=== PATIENT | female | born 1995 | race Caucasian/White ===

== ENCOUNTER 2025-09-17 10:05 | Outpatient (CLI) | payer BC, SELFPAY ==
--- OUTSIDE RECORDS SUMMARY | 2025-09-17 11:11 | XMS_ITS ---
Author Organization Unknown Address [address], [place] [id number] Phone Care Team Providers Care Algebraist Name Role Phone PETTYMarquisIVY BUNDY Attending Unavailable Social History Type Status Start Date End Date Code Code Syst em Smoking History Never smoker (Never Smoked) 351938764 SNOMED CT Sex Female Medications Medication Start Date End Date Route Frequency Dose Code Code System Medication Instructions Home Meds Augmentin 875MG-125MG Oral Tablet 01/04/2018 03/13/2023 By mouth Every 12 hours 1 TABLET 397180 RxNorm 1 TABLET By mouth Every 12 hours. Take with food. Assessment You had the following problems:ACUTE BRONCHITIS, UNSPECIFIEDACUTE SINUSITIS, UNSPECIFIED Hospital Discharge Instructions Should you have any questions prior to discharge, please contact a member of your healthcare team. If you have left the hospital and have any questions, please contact your primary care physician. Reason For Referral No Data Found Problems Problem Start Date Resolved Date Status Code Code System ACUTE BRONCHITIS, UNSPECIFIED active 72689784 SNOMED-CT ACUTE SINUSITIS, UNSPECIFIED active 1 7850594 SNOMED-CT Allergies and Adverse Reactions Allergy Substance Reaction Severity Start Date Concern Status Co de Code System No Known Allergies Active 727923104 SNO MED-CT Plan of Treatment No Data Found Encounters Encounter Diagnosis Start Date Code Code Sys tem Routine care 01/25/2023 975351205 SNOME D-CT Personal Care Team Section
--- OUTSIDE RECORDS SUMMARY | 2025-09-17 11:12 | XMS_ITS | Clinical Summary ---
Author Organization [facility] Address [address] [place] [address] Care Team Providers Care Transformation Lead Name Role Phone Darien Abrams MD Primary Care Provider [phone] Source Comments [facility],non-owned Affiliates and Associated Physician Practices is amultiple site organization consisting of ambulatory clinics and hospital sitesin [place], [place], [place] and [place]. This disclosure is being madepursuant to the Care Everywhere program and may not contain all information available regarding this patient. Last updated 18.[facility] [employer] Allergies No known active allergies Medications * Be aware that medications may not be up to date on this document. Alwaysverify current medications with the patient. etonogestrel-et hinyl estradiol (NUVARING) 0.12-0.015 MG/24HR vaginal ring 12/02/2021 Active naphazoline-phe niramine 0.025-0.3 % ophthalmic solution Instill 2 drops into left eye 4 times daily as needed for Itchy Eyes 5 mL 01/18/2022 Active Fexofenadine-Ps eudoephedrine (GABBI-D ALLERGY & CONGESTION) 180-240 MGIndications:S easonal Allergic Rhinitis Take 1 tablet by mouth once daily Reasons: Hayfever 1 tablet 01/18/2022 Active fluticasone propionate (FLONASE) 50 MCG/ACT nasal sprayIndication s:Eye Pruritus,Nasal Congestion [place] 1 (one) spray into each nostril once daily Reasons: Eye Itching, Stuffy Nose 16 g 01/18/2022 Active Active Problems No known active problems Immunizations Immunization Administration Dates Next Due Michael Melgar primary monoval ent 12+ yr 0.3mL Purple cap 09/13/2021,08/21/2021 DTP 05/20/1996, 5,1995,1994 DTaP VACCINE IM (6wk-6yrs) 05/02/2000 HEP B VACCINE, PED/ADOL 1995,1995, HIB VACCINE 05/20/1996, 5,1995,1994 MMR 05/02/2000,02/13/1996 POLIO IPV 05/02/2000 POLIO OPV 1995,1995,1995 TDAP (7yrs+) 01/04/2018 Family History Medical History Relation Name Comments Hypertension Father Thyroid Disease Mother Relation Name Status Comments Father Alive Mother Alive Social History Tobacco Use Types Packs/Day Years Used Date Smoking Tobacco: Never Assessed Smokeless Tobacco: Never Alcohol Use Standard Drinks/Week Comments Yes 0 (1 standard drink = 0.6 oz pur e alcohol) occasional AUDIT-C Answer Date Recorded Q1: How often do you have a drink containing alcohol? Never 07/28/2023 Q2: How many drinks containi ng alcohol do you have on a typical day when you are drinking? Patient does not drink Q3: How often do you have si x or more drinks on one occasion? Never 07/28/2023 Overall Financial Resource Strain (CARDIA) Answe r Date Recorded How hard is it for you to pa y for the very basics like food, housing, medical care, and heating? Not hard at all 07/28/2023 PHQ-2 Answer Date Recorded PHQ2 TOTAL SCORE 0 01/18/2022 [facility] [place] [facility] - Occupational Stress Questionnaire Answer Date Recorded Do you feel stress - tense, restless, nervous, or anxious, or unable to sleep at night because your mind is troubled all the time - these days? Not at all 07/28/2023 Hunger Vital Sign Answer Date Recorded Within the past 12 months, y ou worried that your food would run out before you got the money to buy more. Never true 07/28/20 23 Within the past 12 months, t he food you bought just didn't last and you didn't have money to get more. Never true 07/28/2023 PRAPARE - Transportation Answer Date Re corded In the past 12 months, has l ack of transportation kept you from medical appointments or from getting medications? No 07/08 In the past 12 months, has l ack of transportation kept you from meetings, work, or from getting things needed for daily living? No 07/28/2023 Housing Stability Vital Sign Answer Sukhdeep e Recorded In the last 12 months, was t here a time when you were not able to pay the mortgage or rent on time? No 07/28/2023 In the last 12 months, how many places have you lived? 1 07/28/2023 In the last 12 months, was t here a time when you did not have a steady place to sleep or slept in a group home (including now)? No 07/28/2023 Comments No Sex and Gender Information Value Date Recorded Sex Assigned at Not on file Legal Sex Female 11:40 AM CDT Gender Identity Not on file Sexual Orientation Not on file Last Filed Vital Signs Vital Sign Reading Time Taken Comments Blood Pressure 122/82 01/18/2022 1:35 PM CDT Pulse 73 01/18/2022 1:35 PM CDT Temperature 36.8 C (98.3 F) 01/18/2022 1:35 PM CDT Respiratory Rate 16 01/18/2022 1:35 PM CDT Oxygen Saturation 98% 01/18/2022 1:35 PM CDT Inhaled Oxygen Concentration - - Weight - - Height - - Body Mass Index - - Plan of Treatment Health Maintenance Due Date Last Done Comments HIV SCREENING 2010 HEPATITIS C SCREENING 01/18/2013 PAP SMEAR 01/24/2016 HPV VACCINE (1 - 3-dose SCDM series) 2022 DEPRESSION SCREENING 11/06/2024 01/18/2022 COVID-19 VACCINE ( season) 2025 09/13/2021, 08/21/2021 INFLUENZA VACCINE (#1) 2025 DTAP/TDAP/TD VACCINES (7 - Td or Tdap) 01/05/2028 01/04/2018, 05/02/2000, 05/20/1996, Additional history exists ZOSTER VACCINE (1 of 2) 2045 HEPATITIS B VACCINE Completed 1995, 1995, 1995 HIB VACCINE Completed 05/20/1996, 08/06, 1995, Additional history exists MENINGOCOCCAL (Group B) VACCINE SHARED DECISION-MAKING Aged Out No longer eligible based on patient's age to complete this topic MENINGOCOCCAL GROUPS A/C/Y/W VACCINE Aged Out No longer eligible based on patient's age to complete this topic PNEUMOCOCCAL VACCINE Aged Out No long er eligible based on patient's age to complete this topic Insurance [facility] Care Teams Transformation Lead Relationship Specialty Start Date End Date Darien Abrams MD [address] [place] [address] PCP - General Internal Medicine 01/18/22
--- OUTSIDE RECORDS SUMMARY | 2025-09-17 11:12 | XMS_ITS | Data Portability ---
Author Organization [employer] , [facility] Address [address] [place] [address] Assessment No assessment recorded. Plan of Treatment Reminders Order Date Submit Date Provider Last Modified By Organization Details Last Modified Time Details Appointments None recorded. Lab streptococc us group B, culture, unspecified specimen 2024 025 [facility], [address] [place], [address], 09:04:24 Referral None recorded. Procedures None recorded. Surgeries None recorded. Imaging None recorded. Medication Orders None recorded. Patient TargetsNo targets recorded. Patient Instructions Encounter Date Encounter Id Patient Instructions Last Modified By Organization Details Last Modified Time 04/09/2025 [id number] depression after childbirth: care instructions swallerdavis Not available 04/09/2025 14:48:41 Care at Home With Your Baby: Care Instructions swallerdavis Not available 04/09/2025 14:48:40 control after counseling swallerdavis Not available 04/09/2025 14:48:41 05/07/2025 [id number] depression after childbirth: care instructions swallerdavis Not available 05/07/2025 12:11:28 Care at Home With Your Baby: Care Instructions swallerdavis Not available 05/07/2025 12:11:28 control after counseling swallerdavis Not available 05/07/2025 12:11:28 Reason for Referral None Reported. Results Created Date Observation Date Name Description Value Unit Range Abnormal Flag Note LastModifiedBy Organization Detail LastModifiedTime 03/19/20 25 03/21/2025 STREP TOCOC CUS, GROUP B CULTU RE streptococcu s, group B culture SEE NOTE abnormal STREP TOCOC CUS, GROUP B CULTU RE Micro Numbe r: [id number] Test Statu s: Final Speci men Sourc e: Recto vag Speci men Quali ty: Adequ ate Resul t: Group B Strep tococ cus isola tasha Beta- hemol ytic strep tococ ci are predi ctabl y susce ptibl e to Penic illin and other beta- lacta ms. Susce ptibi lity testi ng not routi toan perfo rmed. Pleas e conta ct the labor atory withi n 3 days if susce ptibi lity testi ng is iesha ed. Note per CDC guide lines optim al recov anand is achie nesha by swabb ing both the lower vagin a and rectu m (thro ugh the anal sphin cter) . Not Available [facility] [address] [place], [address], 03/21/2025 09:04:24 03/30/2003/31/2025 DRUGS OF ABUSE PANEL , URINE amphetamines , urine NEGATI VE neg Not Available [facility] (Lab) [place], [address], 03/31/2025 02:41:19 03/30/2003/31/2025 DRUGS OF ABUSE PANEL , URINE barbituates, urine NEGATI VE neg Not Available [facility] (Lab) [place], [address], 03/31/2025 02:41:19 03/30/2003/31/2025 DRUGS OF ABUSE PANEL , URINE benzodiazapi monroe, urine NEGATI VE neg Not Available [facility] (Lab) [place], [address], 03/31/2025 02:41:19 03/30/2003/31/2025 DRUGS OF ABUSE PANEL , URINE cannabinoids /THC, urine NEGATI VE neg Not Available [facility] (Lab) [place], [address], 03/31/2025 02:41:19 03/30/2003/31/2025 DRUGS OF ABUSE PANEL , URINE cocaine, urine NEGATI VE neg Not Available [facility] (Lab) [place], [address], 03/31/2025 02:41:19 03/30/2003/31/2025 DRUGS OF ABUSE PANEL , URINE methadone, urine NEGATI VE neg Not Available [facility] (Lab) [place], [address], 03/31/2025 02:41:19 03/30/2003/31/2025 DRUGS OF ABUSE PANEL , URINE opiates, urine NEGATI VE neg Not Available [facility] (Lab) [place], [address], 03/31/2025 02:41:19 03/30/2003/31/2025 DRUGS OF ABUSE PANEL , URINE phencyclidin es, urine NEGATI VE neg NOTE: RESUL TS OF THIS DRUG SCREE N SHOUL D BE USED FOR MEDIC AL PURPO SES ONLY AND NOT FOR LEGAL OR EMPLO YMENT PURPO SES. POSIT MARISOL RESUL TS ARE NOT CONFI RMED. MEDIC ATION S CONTA INING EPHED RINE MAY CAUSE FALSE POSIT MARISOL AMPHE TAMIN E CALL [phone], LAB, TO REQUE ST CONFI RMATI ON TESTI NG. IF CREAT ININE IS <40 mg/dL . RECOL LECTI ON IS SUGGE STED. AMPHE TAMIN E- 500 NG/ML GIGI TURAT E- 200 NG/ML BENZO DIAZE PINES - 200 NG/ML THC- 50 NG/ML COCAI NE- 150 NG/ML METHA DONE- 300 NG/ML OPIAT E- 300 MG/ML PCP- 25 NG/ML Not Available [facility] (Lab) [address] [place], [address], 03/31/2025 02:41:19 03/30/2003/31/2025 DRUGS OF ABUSE PANEL , URINE creatinine, urine 34.6 mg/dL 28-217 Not Available [facility] (Lab) [address] [place], [address], 03/31/2025 02:41:19 03/31/2003/31/2025 HEMAG JARED WBC 14.72 x10'3 /uL 4.5-11 .0 high Not Available [facility] (Lab) [address] [place], [address], 03/31/2025 07:07:53 03/31/2003/31/2025 HEMAG JARED RBC 3.86 x10'6 /uL 4.20-5 .40 low Not Available [facility] (Lab) [address] [place], [address], 03/31/2025 07:07:53 03/31/2003/31/2025 HEMAG JARED hemoglobin 12.4 g/dL 12.0-1 6.0 Not Available [facility] (Lab) [address] [place], [address], 03/31/2025 07:07:53 03/31/2003/31/2025 HEMAG JARED hematocrit 35.1 % 38.0-4 8.0 low Not Available [facility] (Lab) [address] [place], [address], 03/31/2025 07:07:53 03/31/2003/31/2025 HEMAG JARED MCV 90.9 fL 81.0-9 9.0 Not Available [facility] (Lab) [address] [facility] [place], [address], 03/31/2025 07:07:53 03/31/2003/31/2025 HEMAG JARED MCH 32.1 pg 27.0-3 1.0 high Not Available [facility] (Lab) [address], [place], [address], 03/31/2025 07:07:53 03/31/2003/31/2025 HEMAG JARED MCHC 35.3 g/dL 32.0-3 6.0 Not Available [facility] (Lab) [address], [place], [address], 03/31/2025 07:07:53 03/31/2003/31/2025 HEMAG JARED RDW 12.2 % 11.5-1 4.5 Not Available [facility] (Lab) [address], [place], [address], 03/31/2025 07:07:53 03/31/2003/31/2025 HEMAG JARED platelet count 191 x10'3 /uL 130-40 0 Not Available [facility] (Lab) [place], [address], 03/31/2025 07:07:53 03/31/2003/31/2025 HEMAG JARED MPV 10.1 fL 9.3-12 .2 Not Available [facility] (Lab) [place], [address], 03/31/2025 07:07:53 03/31/2003/31/2025 SCREE N scr patient NEGATI VE Not Available [facility] (Lab) [address], [place], [address], 03/31/2025 13:03:34 03/31/2003/31/2025 SCREE N comment NEGAT MARISOL SCREE N INDIC ATES NO FURTH ER TESTI NG IS NECSARAH [place]. ONE VIAL OF RHOGA M MAY BE GIVEN IF MOTHE R IS RH NEGAT MARISOL AND BABY IS RH POSIT MARISOL. Not Available [facility] (Lab) [address], [place], [address], 03/31/2025 13:03:34 Result Notes None recorded. Problems Name Problem SNOMED Code Status Onset Date Resolution Date Notes Provider Name and Address Organization Details Recorded Time Single vessel of umbilica l cord 89568676 Completed repeat US @24 weeks Veronica Coelho [facility], [facility] IV 3 12:27:36 Blood group A Rh(D) negative 347511003 Completed Rhogam complete d Veronica nunez, [facility] IV 3 12:27:36 Group B Streptoc occus carrier 41089534792 03 Completed for abx in labor Veronica Coelho [facility], [facility] IV 3 12:27:36 Complete breech presenta tion 55150084 Completed MFM counsele d plan for pCS Veronica nunez, [facility] IV 3 12:27:36 Pregnanc y 68326191 Completed 2022 labs at [facility] Veronica nunez, [facility] IV 3 12:27:36 Past pregnanc y history of section 831372048 Completed 2022 Breech and came in to labor and delivery in labor and was noted to becomple te and breech, strong desire for TOLAC close interval pregnanc y= edc w/i 2years of c section = 1-2% chance of dehiscen ce and would recommen d RLTCs based on this and no inductio n Brandon Yates MD [address] [facility], [place], [address], [facility] [employer] [facility] 5 16:33:04 Deliveri es by [id number] Active 2022 [facility] [employer] [facility] 3 12:02:32 Problem Notes None recorded. Procedures Surgical History Date Name Laterality Status Provider Name and Address Organization Details Recorded Time 5 section completed Veronica Coelho [facility] [employer] [facility] 04/09/2025 14:21:26 3 Date of Last Pap Smear completed Anum Reza [facility] [employer] [facility] 08/13/2024 15:24:37 3 C Section completed Veronica Coelho [facility] [employer] [facility] 04/09/2025 14:21:42 Imaging Results None recorded. Procedure Notes None recorded. Medical Equipment None Reported. Allergies Allergen ID Allergen Name Allergen Category Reaction Reaction Severity Criticality Documentation Date Start Date Code Code System Note Provider Name and Address Organization Details Recorded Time 330134 No known allergy (situatio n) Not available Not available Not available Not available 08/09/2023 50087 6003 [facility]ED [facility] [employer] [facility] 3 11:57:02 No known drug allergies Medications Name Sig Start Date Stop Date Status Note LastModified by Organization Details LastModified Time terconazole 0.4 % vaginal cream Insert 1 applicato rful every day by vaginal route for 7 days. 03/29 completed Not Available Not Available Not Available promethazin e-DM 6.25 mg-15 mg/5 mL oral syrup 11/11 completed Not Available Not Available Not Available levothyroxi ne 50 mcg tablet Take 1 tablet every day by oral route. 11/20 completed Not Available Not Available Not Available oseltamivir 75 mg capsule 11/11 completed Not Available Not Available Not Available ibuprofen 600 mg tablet 600 mg every 6 hours by oral route. 08/17 completed Not Available Not Available Not Available albuterol sulfate HFA 90 mcg/actuati on aerosol inhaler 08/13 completed Not Available Not Available Not Available fluticasone propionate 50 mcg/actuati on nasal spray,suspe nsion 08/13 completed Not Available Not Available Not Available oxycodone 5 mg tablet 08/09 completed Not Available Not Available Not Available etonogestre l 0.12 mg-ethinyl estradiol 0.015 mg/24 hr vaginal ring 11/11 completed Not Available Not Available Not Available magnesium 05/07 completed Not Available Not Available Not Available Vitamin C active Not Available Not Kayla ilable Not Available Fish Oil 05/07 completed Not Available Not Available Not Available active Not Available Not Avai lable Not Available ferrous sulfate 324 mg (65 mg iron) tablet,fatemeh yed release Take 324 mg by oral route. 08/13 completed Not Available Not Available Not Available Trinatal Rx 1 60 mg iron-1 mg tablet TAKE ONE TABLET BY MOUTH EVERY DAY 11/20 completed Not Available Not Available Not Available Probiotic active Not Available Not Kayla ilable Not Available 28 mg iron-800 mcg tablet Take 1 tablet by oral route. 05/03 completed Not Available Not Available Not Available oxycodone 5 mg tablet,oral ONLY (not feeding tubes) Take 5 mg every 6 hours by oral route. 08/09 completed Not Available Not Available Not Available Vitals Date Recorded Body weight Body mass index (BMI) Body height Systolic And Diastolic Provider Name and Address Organization Details Last Updated DateTime 03/12/2025 02026.204 128 g 33.6 kg/m2 170.18 cm 122/72 mm[Hg] Veronica [facility] [employer] 03/12/2025 10:06:23 Date Recorded Body height Body weight Systolic And Diastolic Provider Name and Address Organization Details Last Updated DateTime 03/19/2025 170.18 cm 92116.8932 84 g 126/72 mm[Hg] Veronica [facility] [employer] [facility] 03/19/2025 11:39:16 Date Recorded Body height Body mass index (BMI) Body weight Systolic And Diastolic Provider Name and Address Organization Details Last Updated DateTime 03/26/2025 170.18 cm 34.2 kg/m2 68796.93 g 116/64 mm[Hg] Mell Ramirez [facility] [employer] 03/26/2025 14:40:40 Date Recorded Body height Body mass index (BMI) Body weight Systolic And Diastolic Provider Name and Address Organization Details Last Updated DateTime 04/09/2025 170.18 cm 31.6 kg/m2 66725.86 g 122/70 mm[Hg] Veronica Coelho [employer] 04/09/2025 14:20:16 Date Recorded Body height Body mass index (BMI) Body weight Systolic And Diastolic Provider Name and Address Organization Details Last Updated DateTime 05/07/2025 170.18 cm 32.3 kg/m2 57943.47 g 122/78 mm[Hg] Veronica Coelho [place] [employer] 05/07/2025 11:52:10 Social History Question Answer Notes LastModified by Bacula ion Details LastModified Time Tobacco Smoking Status Never Smoker Veronica Coelho [facility] [employer] 11/11/2022 14:53:03 How Many Years Have You Consumed Alcohol? 8 Information not available 12/28/2022 Are You Blind Or Do You Have Difficulty Seeing? No Information not available 05/31/2023 Are You Deaf Or Do You Have Serious Difficulty Hearing? No Information not available 05/31/2023 What Type Of Diet Are You Following? REGULAR [email or web address] Information not available 11/11/2022 How Many Children Do You Have? 2 [email or web address] Information not available 05/07/2025 What Is Your Relationship Status? Information not available 06/29/2022 Are You Sexually Active? Yes Information not available 06/29/2022 What Types Of Sporting Activities Do You Participate In? [employer] [email or web address] Information not available 10/25/2023 Sex: Female Functional Status Question Answer Note LastModified by [employer] ion Details LastModified Time Do you use any illicit or recreational drugs? No [email or web address] Information not available 11/11/2022 Do you or have you ever used any other forms of tobacco or nicotine? No [email or web address] Information not available 11/11/2022 What is your level of alcohol consumption? None [email or web address] Information not available 01/25/2023 Are you currently employed? Yes [email or web address] Information not available 12/28/2022 Do you or have you ever used e-cigarettes or vape? Never used electronic cigarettes [email or web address] Information not available 12/28/2022 What is your exercise level? Moderate Information not available 12/28/2022 Mental Status None recorded. Family History Relationship Description Onset Age of this Age Resolved Age Notes LastModified by Organization Details LastModified Time Father Hypertensive disorder [email or web address] Not available 2021 13:30:09 Medical History Condition Response Other Cancer N High Blood Pressure N Colon Cancer N Cytomegalovirus N Hyperthyroidism N Herpes (HSV) N Breast Cancer N Blood Transfusion N MRSA N Lung Cancer N Hypothyroidism N Depression N Incontinence N Panic Attacks N Neurological Disorder N Deep Vein Thrombosis N Anxiety Disorder N Autoimmune disease N Arthritis N Tuberculosis/Positive PPD N Shingles N Polycystic Ovarian Syndrome N Infertility N Cervical Cancer N Chlamydia N Hematuria N Stroke N Varicosities N Crohn's Disease N Seasonal allergies N Alzheimer's/Dementia N COPD/Emphysema N HPV/Genital Warts N Endometriosis N IBS (Irritable Bowel Syndrome) N History of Abnormal Pap N High Cholesterol N Liver Disease N Kidney Infection N Fibromyalgia N Ulcer N Kidney Disease N HIV N Gallbladder disease N Sickle Cell Disease/Trait N Von Willebrand disease N ADD/ADHD N Eating Disorder N Anemia N Diabetes Mellitus (non-insulin dependent ) N Ovarian Problems N Multiple Sclerosis N Gonorrhea N Frequent Urinary Tract infections N Osteopenia N Headaches/migraines N GERD (reflux) N Ovarian Cancer N Diabetes (insulin dependent) N Seizures/Epilepsy N Breast Problems N Fibroids N Heart Attack N Asthma N Lupus N Endometrial Cancer N Rubella N Blood Clotting Disorder N Bipolar Disorder N Diabetes Mellitus (during ) N Ulcerative Colitis N Hepatitis N Heart Disease N Pulmonary Embolism N RPR N Chicken Pox N Osteoporosis N Gynecological History Statement/Question Response Flow Light Date of LMP 05/30/2024 HPV Vaccine Y Duration of Flow (days) 6 Most Recent Mammogram Current Control Method None Age at Menarche 15 Date of Last Colonoscopy Most Recent Bone Density Frequency of Cycle (Q days) 50 Date of Last Pap Smear 10/25/2023 Obstetrics History GPAL:G 2 P 2 0 0 2 Type Value Full Term 2 Living 2 Total 2 Past Encounters Encounter ID Performer Location Encounter Start Date Encounter Closed Date Diagnosis/Indication Diagnosis SNOMED-CT Code Diagnosis ICD10 Code Diagnosis IMO Codes Diagnosis Note [id number] Rhea Damon is, [facility] [address] [facility] [address] 06/29/2022 12:48:10 06/29/2022 14:52:04 Reproductive care management 044691005 Z31.81 [id number] GARCIA Hernandez [address] [address] 11/11/2022 14:25:32 11/16/2022 13:17:16 Fertility education 359801359 Z31.62 reviewed menstrual calendar and timed intercours e,last month had a 50 day cycle. Will continue to track and use Ovulation prediction kits to compare ap with cycle, and have timed intercours e [id number] GARCIA Hernandez [address] [address] 12/28/2022 14:25:57 12/28/2022 14:59:19 81022530 Z33.1 LMP 11/04/23 TERRI 08/11/23Us scheduledt aking PNVNo medical/little rgical concerns [id number] GARCIA Hernandez [address] [address] 01/25/2023 10:48:03 01/25/2023 14:22:47 Routine care 040785242 Z34.91 Gestation period, 11 weeks 06775140 Z3A.11 [id number] GARCIA Hernandez [address] [address] 03/08/2023 12:34:16 03/08/2023 13:55:29 Gestation period, 17 weeks 14116961 Z3A.17 Routine an tenatal care 959851291 Z34.91 screening 2437 56136 Z36.3 Vaginal discharge 166826 006 N89.8 Screening for disorder 287416068 Z11.3 N89.9 [id number] GARCIA Hernandez [address] [address] 03/29/2023 14:54:39 03/29/2023 15:20:12 Single vessel of umbilical cord 48537876 Q27.0 [id number] GARCIA Hernandez [address], [address] [place] [address] 05/03/2023 10:23:20 05/03/2023 11:12:16 Gestation period, 25 weeks 68237346 Z3A.25 Routine an tenatal care 578680163 Z34.91 [id number] Rhea Damon is, GARCIA Saez a [facility], [address] [place] [address] 05/31/2023 11:27:26 05/31/2023 12:23:00 Gestation period, 29 weeks 02341866 Z3A.29 [id number] Rhea Damon is, GARCIA Saez a [facility], [address] [place] [address] 06/14/2023 10:30:33 06/14/2023 11:00:23 Gestation period, 31 weeks 12871834 Z3A.31 Routine an tenatal care 259556734 Z34.91 screening 2437 36901 Z36.2 [id number] Rhea Damon is, GARCIA [facility] [address] [place] [address] 06/29/2023 08:51:47 06/29/2023 16:53:52 [id number] Rhea Damon is, GARCIA [facility] [address] [place] [address] 07/13/2023 13:49:20 07/14/2023 14:59:43 screening 737112027 Z36.85 Gestation period, 35 weeks 33645946 Z3A.35 [id number] Rhea Damon is, GARCIA [facility] [address] [place] [address] 07/20/2023 16:27:48 07/24/2023 13:15:22 Gestation period, 36 weeks 97602446 Z3A.36 [id number] Rhea Damon is, GARCIA [facility] [address] [place] [address] 08/03/2023 09:39:31 08/03/2023 17:16:59 Gestation period, 38 weeks 83841542 Z3A.38 [id number] Rhea Damon is, CNArsh Lout a [facility], [address] [place] [address] 08/09/2023 11:54:58 08/09/2023 12:32:04 state 54702176 Z39.2 EPDS 2 great support, BFWill need PP papIncisio n CDI with dermabondF U in 1 month declines BC [id number] Rhea Damon is, [facility], [facility] [address] [place] [address] 09/13/2023 11:55:40 09/13/2023 13:00:20 state 43287271 Z39.2 EPDS 2Has support from family, works all the timebreast feeding going wellDeclin [place] [id number] Rhea Damon is, GARCIA [facility], [facility] [address] [place] [address] 10/25/2023 11:09:34 10/25/2023 12:10:23 Gynecologic examination 30558506 Z01.419 Screening for malignant neoplasm of cervix 141768321 Z12.4 Surveillan ce of contraception 632724450 Z30.40 Depression screening 171 317896 Z13.31 See Intake Screening - PHQ [id number] [facility] [address] [place] [address] 08/13/2024 14:50:56 08/13/2024 17:12:52 test positive 087982533 Z32.01 Pt presents today for a confirmati on of visit. has not been previously confirmed at another healthcare facility. Pt voiced that she is happy about this . TVUS today showed:IUP with Cardiac Activity. TERRI based on this US. TERRI: 04/04/2025G estational Age: 6w 4dFHT: 89 First trimester teaching provided.- --Foods and activities to avoid---We ight gain recommenda tions based on BMI---Safe meds---Ruben entation to practice-- -Delivery locations- --KALINA visit progressio n---Prenat al vitamins daily---To xoplasmosi s precaution s reviewed-- -[facility] Guide; What to expect on your maternity journey-- -S/S of SAB reviewed and when to seek care RTC for 1st OB, Labs, and Physical. --BMI: 31.1 [id number] Rhea bella, GARCIA [facility] h [address] [place] [address] 09/11/2024 16:39:32 09/16/2024 12:12:43 Gestation period, 10 weeks 91495368 Z3A.10 2867046 Normal 4666905 2 Z34.81 0440327 screening 2437 64340 Z36.89 [id number] [facility] [address] [place] [address] 10/02/2024 09:50:32 10/02/2024 13:03:59 Gestation period, 13 weeks 71364997 Z3A.13 9616723 Normal 6598120 2 Z34.82 6978816 Vitamin D below reference range 290828674 R79.89 04940097 [id number] Rhea bella, GARCIA [facility] [address] [place] [address] 10/29/2024 12:02:33 11/12/2024 11:52:37 Gestation period, 17 weeks 22528578 Z3A.17 9289039 Normal 8958507 2 Z34.82 1246611 Acquired hypothyroidism 397108166 E03.9 75012 [id number] [facility] [address] [place] [address] 11/20/2024 09:22:48 11/20/2024 11:03:35 Gestation period, 20 weeks 16288131 Z3A.20 5944880 screening for malformation 763015106 Z36.3 screening 2437 51698 Z36.86 [id number] Rhea bella CNM [facility] [address] [facility] [place] [place] [address] 12/31/2024 13:46:56 12/31/2024 17:39:07 Gestation period, 26 weeks 67912362 Z3A.26 9926090 screening for malformation 838015170 Z36.3 screening 2437 88760 Z36.86 Normal 3255539 2 Z34.82 8732627 [id number] Rhea Damon is, GARCIA [facility] [address] [place] [address] 01/14/2025 15:24:09 01/14/2025 16:28:33 Gestation period, 28 weeks 47622139 Z3A.28 0814288 screening 2437 97683 Z36.89 Normal 9387553 2 Z34.83 6144069 [id number] Rhea Steven-Ra is, GARCIA Lout a [facility], [address] [place] [address] 01/29/2025 14:53:33 01/29/2025 15:33:40 Multigravida 445846878 Z34.83 21804309 Gestation period, 30 weeks 57765433 Z3A.30 0378573 [id number] Rhea Damon is, GARCIA Lout a [facility], [address] [place] [address] 02/12/2025 13:38:05 02/12/2025 14:22:30 Multigravida 706158605 Z34.83 17335313 Gestation period, 32 weeks 5749917 Z3A.32 7684118 [id number] Rhea Damon is, GARCIA Lout a [facility], [address] [place] [address] 02/26/2025 14:33:42 02/26/2025 16:31:14 Multigravida 583868244 Z34.83 84526822 Gestation period, 34 weeks 75098733 Z3A.34 3153627 [id number] Rhea Steven-Ra bella, GARCIA Lout a [facility], [address] [place] [address] 03/12/2025 09:59:59 03/12/2025 10:30:00 Multigravida 359620459 Z34.83 56956941 Gestation period, 36 weeks 47845135 Z3A.36 4374273 [id number] Rhea bella, GARCIA [facility] [facility], [facility] [address] [place] [address] 03/19/2025 11:20:57 03/19/2025 12:10:24 screening [id number] Z36.85 Multigravida [id number] Z 34.83 [id number] Gestation period, 37 weeks [id number] Z3A.37 [id number] Brandon Yates MD [facility] [address] [place] [address] 03/26/2025 14:31:39 04/01/2025 16:05:10 Gestation period, 38 weeks [id number] Z3A.38 [id number] Doing well.GBS positive, we will manage expectantl y. [id number] Rhea bella, [facility], [facility] [address] [place] [address] 04/09/2025 14:13:52 04/09/2025 14:49:16 state [id number] Z39.2 EPDS 5Has support from family, works all the timebreast feeding going wellDeclin es BCSteri strips removed Depression screening 171 [id number] Z13.31 See Screening Section for EPDS Questionna sylvain Result-5 [id number] Rhea bella, GARCIA [facility], [facility] [address] [place] [address] 05/07/2025 11:44:27 05/07/2025 12:56:04 state [id number] Z39.2 EPDS 0Has support from family, works all the timebreast feeding going wellDeclin es BC Depression screening 171 [id number] Z13.31 See Screening Section for EPDS Questionna yslvain Result-0 Health Concerns Section Related Observation LastModified by Organization Detai ls LastModified Time None Recorded Concern Status LastModified by Organization Details LastModified Time None Recorded Advance Directives Directive None Recorded Payers Insurance Date Sequence Insurance Name Policy Number Policy Medina Covered Member ID Medina Member ID Guarantor Name 08/13/2024 1 [place] 111 Felipa Mata [id number] Felipa Mata 05/07/2025 1 [place] 112 Felipa Mata [id number] Felipa Mata Notes Date Note Type Note Provider Name and Address Organization Details Recorded Time 03/12/2025 text/html [facility] OB Return VisitReported by Patient Felipa Peralta y/o here for routine OB visit, she is 36/5 weeks, denies any vaginal spotting, bleeding, fluid leakage or cramping, movement noted, taking vitamins, Rhea Little CNM [facility] [place], [address], [facility] [employer] IV 03/12/2025 10:21:35 03/19/2025 text/html [facility] OB Return VisitReported by Patient Felipa 30 y/o here for routine OB visit, she is 37/5 weeks, denies any vaginal spotting, bleeding, fluid leakage or cramping, movement noted, taking vitamins, getting GBS today Rhea Little CNM [address] [place] [address], [phone], [facility] [employer] 03/19/2025 12:02:00 03/26/2025 text/html ROS as noted in the HPI The patient verbally consented to documentation via virtual scribe for this encounter. Patient is here today for a routine OB visit. She is currently at 38.5 weeks gestation. vitamins: yes She has felt movement.She denies any complaints of the presence of vaginal bleed, leaking fluid, abdominal cramps, nausea, vomiting, headache or visual disturbances. Brandon Yates MD [address] [place] [address], [phone], [facility] [employer] 03/28/2025 18:28:20 04/09/2025 text/html VisitReported by Patient Felipa 30 y/o here for incision check after having on 03/30/2025, delivered by Dr. Yates male, weight 7#15oz, breast feeding, denies any problems Rhea Little CNM [facility] [address] [place], [address], [facility] [employer] [facility] IV 04/09/2025 14:48:51 05/07/2025 text/html VisitReported by PatientHPIFor onset/timing, patient reportsdate of delivery: (03/30/2025). For quality, patient reportsrepeat c/s. For context, patient reportsfeeding choice: breast,good support from partner/family,resume d sexual activity, andresumed menstrual bleeding no. For associated symptoms, patient reportsno abnormal bleeding,no vaginal discharge,no pelvic pain,laceration well healed,no constipation,no fecal incontinence,no dysuria,no urinary incontinence,no fever,no problems,no mastitis, andnormal mood. For contraception plan, patient reportsdeclines contraception. Felipa 30 y/o here for 6 week post visit Rhae Little, [facility] [address] [facility], [place], [address], [facility] 05/07/2025 12:12:16 OBGyn Episode Ob Episode Information Episode Created Date Number of Fetuses Patient Bloodtype Patient rh Status Prepregnancy Weight lbs Domestic Partner Domestic Partner Phone Father Name Field Marketer Status 09/11/20 24 1 A Negative CLOSED Fetus Data First Name Last Name Admitted to NICU Weight (g) Sex Living Outcome Pediatric Complications Fetus ID Race Codes Race Delivery Type false 3600.38 65 M true Full Term [id number] Repeat Problems Problem Notes St E/ has peds and Breastpum p Problem Name Start Date End Date Resolution Snomed Code Not e Past history of section 08/04/2023 [id number] Breech and came in to labor and delivery in labor and was noted to becomplete and breech, strong desire for TOLACclose interval = edc w/i 2years of c section = 1-2% chance of dehiscence and would recommend RLTCs based on this and no induction Terri Calculation Initial Terri Date Initial Exam Date Initial Exam Provider Initial Ultrasound Date Last Menstrual Period Date Ultra Sound Weeks Gestation 04/04/2025 09/11/2024 08/13/2024 0 Eighteen To Twenty Week Terri Update Ultra Sound Date Fundal Height At Umbil Quickening Date Ultra Sound Latest Weeks Gestation Final Terri Confirmed By Final Terri Confirmed Date Final Terri Date Ultra Sound Latest Days Gestation 0 0 Pre-chema Flowsheet Flowsheet Date 09/11/2024 Whitmore Score Blood Edema Fundus Height Fundus Units Glucose Ketones Leukocytes Nitrite Labor Signs Protein Cervic Dilation Cervic Effacement Cervic Station Type Weight in lbs Pre/Post Dialysis Refused With clothes 0.0 BP Diastolic BP Location Tested BP Systolic BP Type sitting Fetus Heart Rate Present A 157 Fetus Movement Comments OTC med list and IOB phample t reviewed, IOB labs today declines NIPT Flowsheet Date 10/02/2024 Whitmore Score Blood Edema Fundus Height Fundus Units Glucose Ketones Leukocytes Nitrite Labor Signs Protein Cervic Dilation Cervic Effacement Cervic Station none neg Type Weight in lbs Pre/Post Dialysis Refused With clothes 192.596965029696 BP Diastolic BP Location Tested BP Systolic BP Type 60 100 sitting Fetus Heart Rate Present A 145 Fetus Movement A No Comments no ob concerns reviewed IOB labs Flowsheet Date 10/29/2024 Whitmore Score Blood Edema Fundus Height Fundus Units Glucose Ketones Leukocytes Nitrite Labor Signs Protein Cervic Dilation Cervic Effacement Cervic Station Type Weight in lbs Pre/Post Dialysis Refused With clothes 196.169277888672 BP Diastolic BP Location Tested BP Systolic BP Type 70 110 sitting Fetus Heart Rate Present A 150 Fetus Movement A No Comments Discussed Hypothyroid, decli [place] meds wants free T3 and free T4 drawn. No ob concerns Flowsheet Date 11/20/2024 Whitmore Score Blood Edema Fundus Height Fundus Units Glucose Ketones Leukocytes Nitrite Labor Signs Protein Cervic Dilation Cervic Effacement Cervic Station Type Weight in lbs Pre/Post Dialysis Refused With clothes 197.222934579232 BP Diastolic BP Location Tested BP Systolic BP Type 75 120 sitting Fetus Heart Rate Present Fetus Movement A Yes Comments 73%ile, post placenta, Incom plete needs heart views Flowsheet Date 12/31/2024 Whitmore Score Blood Edema Fundus Height Fundus Units Glucose Ketones Leukocytes Nitrite Labor Signs Protein Cervic Dilation Cervic Effacement Cervic Station none neg Type Weight in lbs Pre/Post Dialysis Refused Weight 203.330650848036 BP Diastolic BP Location Tested BP Systolic BP Type 70 112 Fetus Heart Rate Present Fetus Movement A Yes Comments anatomy complete, FU in 2 we eks in [place] for 3T Flowsheet Date 01/14/2025 Whitmore Score Blood Edema Fundus Height Fundus Units Glucose Ketones Leukocytes Nitrite Labor Signs Protein Cervic Dilation Cervic Effacement Cervic Station 28 cm Type Weight in lbs Pre/Post Dialysis Refused With clothes 207.929058098487 BP Diastolic BP Location Tested BP Systolic BP Type 70 100 sitting Fetus Heart Rate Present A 135 Fetus Movement A Yes Comments 1 week of BG all WNL, 3T lab s today, no ob concerns Flowsheet Date 01/29/2025 Whitmore Score Blood Edema Fundus Height Fundus Units Glucose Ketones Leukocytes Nitrite Labor Signs Protein Cervic Dilation Cervic Effacement Cervic Station 29 cm none neg Type Weight in lbs Pre/Post Dialysis Refused With clothes 207.292695501017 BP Diastolic BP Location Tested BP Systolic BP Type 66 L arm 118 sitting Fetus Heart Rate Present A 144 Fetus Movement A Yes Comments 3T labs normal, discussed TO LAC, not to be induced, IV, continuous monitoring Flowsheet Date 02/12/2025 Whitmore Score Blood Edema Fundus Height Fundus Units Glucose Ketones Leukocytes Nitrite Labor Signs Protein Cervic Dilation Cervic Effacement Cervic Station 32 cm none neg Type Weight in lbs Pre/Post Dialysis Refused With clothes 209.899290956060 BP Diastolic BP Location Tested BP Systolic BP Type 76 L arm 122 sitting Fetus Heart Rate Present A 140 Fetus Movement A Yes Comments Doing well, no ob concerns Flowsheet Date 02/26/2025 Whitmore Score Blood Edema Fundus Height Fundus Units Glucose Ketones Leukocytes Nitrite Labor Signs Protein Cervic Dilation Cervic Effacement Cervic Station 34 cm none neg Type Weight in lbs Pre/Post Dialysis Refused With clothes 213.430790574354 BP Diastolic BP Location Tested BP Systolic BP Type 78 L arm 122 sitting Fetus Heart Rate Present A 140 Fetus Movement A Yes Comments Doing well, GBS next visit Flowsheet Date 03/12/2025 Whitmore Score Blood Edema Fundus Height Fundus Units Glucose Ketones Leukocytes Nitrite Labor Signs Protein Cervic Dilation Cervic Effacement Cervic Station 36 cm none neg Type Weight in lbs Pre/Post Dialysis Refused With clothes 214.901533727573 BP Diastolic BP Location Tested BP Systolic BP Type 72 L arm 122 sitting Fetus Heart Rate Present A 120 Fetus Movement A Yes Comments GBS not collected today r/t swabs. Will collect next week. Doing well, no ob concerns Flowsheet Date 03/19/2025 Whitmore Score Blood Edema Fundus Height Fundus Units Glucose Ketones Leukocytes Nitrite Labor Signs Protein Cervic Dilation Cervic Effacement Cervic Station none trace Type Weight in lbs Pre/Post Dialysis Refused With clothes 213.419177047084 BP Diastolic BP Location Tested BP Systolic BP Type 72 L arm 126 sitting Fetus Heart Rate Present Fetus Movement A Yes Comments GBS pending FU in 1 week in [place] with Discussed needs continuous monitoring but can be wireless having IV, also having IV even if fluids aren't hooked up Flowsheet Date 03/26/2025 Whitmore Score Blood Edema Fundus Height Fundus Units Glucose Ketones Leukocytes Nitrite Labor Signs Protein Cervic Dilation Cervic Effacement Cervic Station none 39 cm none neg Type Weight in lbs Pre/Post Dialysis Refused Stated 218.321218445494 BP Diastolic BP Location Tested BP Systolic BP Type 64 116 sitting Fetus Heart Rate Present A 140 Present Fetus Movement A Yes Comments GBS positive. Good mov ements and good amount of fluid. Femur length was 72 mm. I guessed they were going to deliver on 04/07/[birth year] and that is her 's birthday. Flowsheet Date 04/09/2025 Whitmore Score Blood Edema Fundus Height Fundus Units Glucose Ketones Leukocytes Nitrite Labor Signs Protein Cervic Dilation Cervic Effacement Cervic Station Type Weight in lbs Pre/Post Dialysis Refused Stated 201.688760594728 BP Diastolic BP Location Tested BP Systolic BP Type 70 L arm 122 sitting Fetus Heart Rate Present Fetus Movement Comments Flowsheet Date 05/07/2025 Whitmore Score Blood Edema Fundus Height Fundus Units Glucose Ketones Leukocytes Nitrite Labor Signs Protein Cervic Dilation Cervic Effacement Cervic Station Type Weight in lbs Pre/Post Dialysis Refused With clothes 206.690082060961 BP Diastolic BP Location Tested BP Systolic BP Type 78 L arm 122 sitting Fetus Heart Rate Present Fetus Movement Comments Menstrual History Last Menstrual Date Menses Monthly On Bcp Conception Prior Menses Frequency Hcg Plus Date Menarche Onset Age Delivery Information Delivery Date Delivery Type Labor Anesthesia Weeks Gestation Incision Type Labor Labor Length Hrs Delivered By Post Complications Tubal Sterilization Discharge Date Comments Regional-Sp inal 39.2 Low Transvers e false false 04/01/2025 Discharge Information Feeding Method Contraceptive Method Maternal HG B and HCT Levels Breast none Ob Episode Information Episode Created Date Number of Fetuses Patient Bloodtype Patient rh Status Prepregnancy Weight lbs Domestic Partner Domestic Partner Phone Father Name Field Marketer Status 01/17/20 23 1 A Negative CLOSED Fetus Data First Name Last Name Admitted to NICU Weight (g) Sex Living Outcome Pediatric Complications Fetus ID Race Codes Race Delivery Type false 3146.79 45 F Full Term [id number] 1111-3 White Primary Problems Problem Notes Problem Name Start Date End Date Resolution Snomed Code Not e 01/16/2023 [id number] [facility] Complete breech presentation [id number] MFM counseled p romina for pCS Blood group A Rh(D) negative 402362102 Rhogam complete d Single vessel of umbilical cord [id number] repeat US @24 weeks Group B Streptococcus carrier [id number] for abx in lab or Terri Calculation Initial Terri Date Initial Exam Date Initial Exam Provider Initial Ultrasound Date Last Menstrual Period Date Ultra Sound Weeks Gestation 08/11/2023 01/16/2023 12/30/2022 11/04/2022 8 Eighteen To Twenty Week Terri Update Ultra Sound Date Fundal Height At Umbil Quickening Date Ultra Sound Latest Weeks Gestation Final Terri Confirmed By Final Terri Confirmed Date Final Terri Date Ultra Sound Latest Days Gestation 0 [email or web address] 01/25/2023 023 0 Pre- Flowsheet Flowsheet Date 01/25/2023 Whitmore Score Blood Edema Fundus Height Fundus Units Glucose Ketones Leukocytes Nitrite Labor Signs Protein Cervic Dilation Cervic Effacement Cervic Station Type Weight in lbs Pre/Post Dialysis Refused With clothes 0.0 BP Diastolic BP Location Tested BP Systolic BP Type R arm sitting Fetus Heart Rate Present Fetus Movement Comments +CA per BSUS orders for labs given Flowsheet Date 03/08/2023 Whitmore Score Blood Edema Fundus Height Fundus Units Glucose Ketones Leukocytes Nitrite Labor Signs Protein Cervic Dilation Cervic Effacement Cervic Station none neg Type Weight in lbs Pre/Post Dialysis Refused With clothes 190.722827068010 BP Diastolic BP Location Tested BP Systolic BP Type 72 R arm 120 sitting Fetus Heart Rate Present A 145 Fetus Movement Comments BV symptoms, sure swab colle cted Flowsheet Date 03/29/2023 Whitmore Score Blood Edema Fundus Height Fundus Units Glucose Ketones Leukocytes Nitrite Labor Signs Protein Cervic Dilation Cervic Effacement Cervic Station Type Weight in lbs Pre/Post Dialysis Refused With clothes 194.210905541410 BP Diastolic BP Location Tested BP Systolic BP Type 76 R arm 122 sitting Fetus Heart Rate Present Fetus Movement Comments anatomy complete, per tech 2 VC pt will schedule repeat US at [place], discussed concern for SGA infant with 2VC. Baby currently 67%ile male, Anatomy US today Flowsheet Date 05/03/2023 Whitmore Score Blood Edema Fundus Height Fundus Units Glucose Ketones Leukocytes Nitrite Labor Signs Protein Cervic Dilation Cervic Effacement Cervic Station 26 none none neg Type Weight in lbs Pre/Post Dialysis Refused With clothes 196.97616384195 BP Diastolic BP Location Tested BP Systolic BP Type 70 R arm 122 sitting Fetus Heart Rate Present A 152 Fetus Movement A Yes Comments MFM referral for SUA and mar ginal cord insertwould prefer to do QID BG testing over GTT Flowsheet Date 05/31/2023 Whitmore Score Blood Edema Fundus Height Fundus Units Glucose Ketones Leukocytes Nitrite Labor Signs Protein Cervic Dilation Cervic Effacement Cervic Station 28 none none neg Type Weight in lbs Pre/Post Dialysis Refused With clothes 199.463476627029 BP Diastolic BP Location Tested BP Systolic BP Type 62 110 sitting Fetus Heart Rate Present A 140 Fetus Movement A Yes Comments Rhogam order given, instruct ed on BG monitoring will do for 1 week instead of 1hr Flowsheet Date 06/14/2023 Whitmore Score Blood Edema Fundus Height Fundus Units Glucose Ketones Leukocytes Nitrite Labor Signs Protein Cervic Dilation Cervic Effacement Cervic Station 32 none neg Type Weight in lbs Pre/Post Dialysis Refused With clothes 201.722200176044 BP Diastolic BP Location Tested BP Systolic BP Type 68 R arm 116 standing Fetus Heart Rate Present A 140 Fetus Movement A Yes Comments BG >95% WNL, can stopwill ge t CBC, HIV and RPR drawn today Flowsheet Date 06/29/2023 Whitmore Score Blood Edema Fundus Height Fundus Units Glucose Ketones Leukocytes Nitrite Labor Signs Protein Cervic Dilation Cervic Effacement Cervic Station none 34 none Type Weight in lbs Pre/Post Dialysis Refused With clothes 208.049069834062 BP Diastolic BP Location Tested BP Systolic BP Type 84 L arm 122 sitting Fetus Heart Rate Present A 137 Fetus Movement A Yes Comments Growths with MFM for SUA Flowsheet Date 06/29/2023 Whitmore Score Blood Edema Fundus Height Fundus Units Glucose Ketones Leukocytes Nitrite Labor Signs Protein Cervic Dilation Cervic Effacement Cervic Station none neg Type Weight in lbs Pre/Post Dialysis Refused BP Diastolic BP Location Tested BP Systolic BP Type Fetus Heart Rate Present Fetus Movement Comments Flowsheet Date 07/13/2023 Whitmore Score Blood Edema Fundus Height Fundus Units Glucose Ketones Leukocytes Nitrite Labor Signs Protein Cervic Dilation Cervic Effacement Cervic Station 35 none neg Type Weight in lbs Pre/Post Dialysis Refused With clothes 210.659451638008 BP Diastolic BP Location Tested BP Systolic BP Type 70 115 sitting Fetus Heart Rate Present A 140 Fetus Movement A Yes Comments GBS pending Flowsheet Date 07/20/2023 Whitmore Score Blood Edema Fundus Height Fundus Units Glucose Ketones Leukocytes Nitrite Labor Signs Protein Cervic Dilation Cervic Effacement Cervic Station 37 none none neg Type Weight in lbs Pre/Post Dialysis Refused With clothes 212.980372536413 BP Diastolic BP Location Tested BP Systolic BP Type 70 112 sitting Fetus Heart Rate Present A 140 Fetus Movement A Yes Comments GBS + hesitant to treat with abx, discussed using essential oils for GBS treatment is not recommendedBreech -discussed we don't do breech deliveries, discussed may want to speak with MFM at [facility] when there for apt this week I'm not sure if there is a physician who will do a breech delivery there Flowsheet Date 08/03/2023 Whitmore Score Blood Edema Fundus Height Fundus Units Glucose Ketones Leukocytes Nitrite Labor Signs Protein Cervic Dilation Cervic Effacement Cervic Station trace 39 none none Type Weight in lbs Pre/Post Dialysis Refused With clothes 217.500053571886 BP Diastolic BP Location Tested BP Systolic BP Type 72 118 sitting Fetus Heart Rate Present A 140 Fetus Movement A Yes Comments 08/02 MFM discussed breech, E CV vs primary CS growth 36% /ant placenta /BREANA 12Discussed primary CS, would like delayed cord clamping and skin to skin SONAL- Case sent for CS 08/11 at [facility] Flowsheet Date 08/09/2023 Whitmore Score Blood Edema Fundus Height Fundus Units Glucose Ketones Leukocytes Nitrite Labor Signs Protein Cervic Dilation Cervic Effacement Cervic Station Type Weight in lbs Pre/Post Dialysis Refused With clothes 197.457796042599 BP Diastolic BP Location Tested BP Systolic BP Type 82 R arm 130 sitting Fetus Heart Rate Present Fetus Movement Comments Flowsheet Date 09/13/2023 Whitmore Score Blood Edema Fundus Height Fundus Units Glucose Ketones Leukocytes Nitrite Labor Signs Protein Cervic Dilation Cervic Effacement Cervic Station Type Weight in lbs Pre/Post Dialysis Refused With clothes 192.648992992171 BP Diastolic BP Location Tested BP Systolic BP Type 76 R arm 126 sitting Fetus Heart Rate Present Fetus Movement Comments Menstrual History Last Menstrual Date Menses Monthly On Bcp Conception Prior Menses Frequency Hcg Plus Date Menarche Onset Age 1211/04/2022 Delivery Information Delivery Date Delivery Type Labor Anesthesia Weeks Gestation Incision Type Labor Labor Length Hrs Delivered By Post Complications Tubal Sterilization Discharge Date Comments 3 General 39 Felipa Saravia MD 08/06/2023 Discharge Information Feeding Method Contraceptive Method Maternal HG B and HCT Levels Breast none
--- OUTSIDE RECORDS SUMMARY | 2025-09-17 11:13 | XMS_ITS ---
Author Organization Unknown Address [address] [place] [phone] Phone Care Team Providers Care Contact Center Consultant Name Role Phone RADHA CHEN Attending Unavailable NO PHYSICIAN Primary Unavailable Social History Type Status Start Date End Date Code Code Syst em Smoking History Never smoker (Never Smoked) 617676029 SNOMED CT Sex Female Medications Medication Start Date End Date Route Frequency Dose Code Code System Medication Instructions Home Meds Augmentin 875MG-125MG Oral Tablet 01/04/2018 03/13/2023 By mouth Every 12 hours 1 TABLET 078468 RxNorm 1 TABLET By mouth Every 12 [...] Code Code System ACUTE BRONCHITIS, UNSPECIFIED active 41327798 SNOMED-CT ACUTE SINUSITIS, UNSPECIFIED active 1 [id number] SNOMED-CT Allergies and Adverse Reactions Allergy Substance Reaction Severity Start Date Concern Status Co de Code System No Known Allergies Active 620982765 SNO MED-CT Plan of Treatment No Data Found Encounters Encounter Diagnosis Start Date Code Code Sys tem Left lower quadrant pain 03/13/2023 SNO MED-CT Personal Care Team Section Progress Notes [facility] 03/14/2023 07:41 Clinical Report - Physicians/Mid Levels [facility] Emergency Department [address] [place] [id number] Patient: EMMA KU Sex: F : 1995 Age: 28y Arrrival: 03/13/2023 21:32 Departure: 03/13/2023 22:43 Disposition: Discharge Arrived- By private vehicle. Historian- patient. HISTORY OF PRESENT ILLNESS Chief Complaint: ABDOMINAL PAIN. It is described as sharp and well localized. No radiation. This started yesterday Pt is 18 weeks presents with left lower abdominal pain. Pain started yesterday and she did not take anything. She saw her Ob last week and had an ultrasound that was grossly unremarkable. Pt is also being treated for yeast infection but vaginal irritation has not improved. She denies vaginal discharge or bleeding. and is still present. No nausea, loss of appetite or vomiting. No additional abdominal pain. Similar symptoms previously. None. Recent medical care: The patient was seen recently in the office. REVIEW OF SYSTEMS No difficulty with urination, fever or headache. All other systems reviewed and are negative. PAST HISTORY See nurses notes. ADDITIONAL NOTES The nursing notes have been reviewed. PHYSICAL EXAM Vital Signs: Have been reviewed as normal. Appearance: Alert. Oriented X3. No acute distress. Eyes: Eyes normal inspection. ENT: Ears normal. Neck: Normal inspection. CVS: Normal heart rate. Heart sounds normal. Respiratory: No respiratory distress. Breath sounds normal. Abdomen: Nontender. Back: Normal inspection. Skin: Skin warm and dry. Normal skin color. Extremities: Extremities exhibit normal ROM. No lower extremity edema. Neuro: Oriented X 3. No motor deficit. LABS, X-RAYS, AND EKG Laboratory Tests: Urinalysis: (JOSE: 03/13/2023 22:21) ( MsgRcvd 03/13/2023 22:21) Final results Test Result Flag Units (Reference) Clinical Report - Physicians/Mid Levels [facility] Emergency Department [address] [place] [address] Patient: EMMA KU Sex: F : 1995 Age: 28y Arrrival: 03/13/2023 21:32 Departure: 03/13/2023 22:43 Disposition: Discharge Color PALE YELLOW Clarity CLEAR Spec Grav 1.005 (NORMAL: 1.001 PH 6.5 A (NORMAL: 5 - 6 Leuk Est + A (NORMAL: NEGAT Nitrates Negative (NORMAL: NEGAT Protein NEGATIVE (NORMAL: NEGAT Glucose NEGATIVE (NORMAL: NEGAT Ketones NEGATIVE (NORMAL: NEGAT Urobilinogen NORMAL (NORMAL: 0-1 m Bilirubin NEGATIVE (NORMAL: NEGAT Blood NEGATIVE (NORMAL: NEGAT Microscopic See Below Wbc (5-10) (NORMAL: 0-3 / Rbc None Seen (NORMAL: 0-3 / Squam Epith (1-5) (NORMAL: 0-1 / Tubal Epith None Seen (NORMAL: None Trans. Epi. NONE SEEN (NORMAL: None Mucus None Seen (NORMAL: None Bacteria PRESENT A (NORMAL: None Crystals NONE SEEN (NORMAL: None Casts NONE SEEN (NORMAL: None Yeast NONE SEEN (NORMAL: None Trichomonas NONE SEEN (NORMAL: None Spermatozoa NONE SEEN (NORMAL: None . PROGRESS AND PROCEDURES Course of Care: 22:30 03/13/23. spoke to M at [facility], Dr Salamanca,she agrees that patient can go home and follow up. 22:34 03/13/23. exam consistent with round ligament pain versus ovarian cyst. Abdomen is soft and nontender. Disposition: Condition: good and stable. CLINICAL IMPRESSION Acute left lower quadrant abdominal pain. Ultrasound was not performed to determine location because the patient had a previously documented intrauterine . Second trimester discomforts of . No vomiting. INSTRUCTIONS No restrictions to activity. Drink plenty of fluids. (Tylenol 500 mg every 4 hours for pain follow-up with your provider in the morning for an outpatient ultrasound to ensure no ovarian cyst return to the emergency department for any worsening of symptoms, vaginal bleeding or clear fluid discharge). Follow-up: Clinical Report - Physicians/Mid Levels [facility] Emergency Department [address] [place] [id number] Patient: EMMA KU Sex: F : 1995 Age: 28y Arrrival: 03/13/2023 21:32 Departure: 03/13/2023 22:43 Disposition: Discharge Follow up with an vocational rehabilitation counselor. (Electronically signed by Jina Thorpe MD 03/14/2023 07:04)
--- OUTSIDE RECORDS SUMMARY | 2025-09-17 11:13 | XMS_ITS | Clinical Summary ---
Author Organization [facility] Address [facility] [place] [address] Care Team Providers Care Spectroscopist Name Role Phone None, Provider MD Primary Care Provider Unavaila ble Allergies No known active allergies Medications vitamin, low iron, ( VITAMIN WITH IRON) 27-0.8 MG tablet Take 1 tablet by mouth daily. Active omega-3 fatty acid (FISH OIL) 500 MG capsule Take 1 capsule (500 mg total) by mouth daily. Active probiotic (FLORAJEN3) Cap capsule Take 1 capsule by mouth 3 (three) times daily with meals. Active oxyCODONE-aceta minophen (PERCOCET) 5-325 MG tabletIndicatio ns:Acute Pain < 7 Day Supply Take 1 tablet by mouth every 6 (six) hours as needed. Indications: Acute Pain < 7 Day Supply 20 tablet 04/01/2025 Active Active Problems Problem Noted Date Diagnosed Date 03/30/2025 Delivery by section using transverse incision of lower segment of uterus 08/06/2023 Breech presentation 08/04/2023 Resolved Problems Problem Noted Date Diagnosed Date Resolved Date 07/27/2023 08/07/2023 Overview (08/04/2023): Added automatically from request for surgery [id number] Social History Tobacco Use Types Packs/Day Years Used Date Smoking Tobacco: Never Smokeless Tobacco: Never Alcohol Use Standard Drinks/Week Comments Never 0 (1 standard drink = 0.6 oz pur e alcohol) B1300 Health Literacy Answer Date Recor ded How often do you need to hav e someone help you when you read instructions, pamphlets, or other written material from your doctor or pharmacy? Rarely 03/31/2025 [facility] Utilities Answer Date Recorded In the past 12 months has e [place], gas, oil, or water company threatened to shut off services in your home? No 03/31/2025 Humiliation, Afraid, Rape, and Kick questionnair e Answer Date Recorded Within the last year, have y ou been afraid of your partner or ex-partner? No 03/31/2025 Within the last year, have y ou been humiliated or emotionally abused in other ways by your partner or ex-partner? No Within the last year, have y ou been kicked, hit, slapped, or otherwise physically hurt by your partner or ex-partner? No 03/31/2025 Within the last year, have y ou been raped or forced to have any kind of sexual activity by your partner or ex-partner? No 03/31/2025 Social Connection and Isolation Panel Answer Date Recorded In a typical week, how many times do you talk on the phone with family, friends, or neighbors? More than three times a week 03/31/2025 How often do you get togethe r with friends or relatives? Once a week 03/31/2025 How often do you attend [facility] or temple services? More than 4 times per year 03/31/2025 Do you belong to any clubs o r organizations such as yazidism groups, unions, fraternal or athletic groups, or school groups? No 03/31/2025 How often do you attend meet ings of the clubs or organizations you belong to? Never 03/31/2025 Are you , , di vorced, , never , or living with a partner? 03/31/2025 AUDIT-C Answer Date Recorded Q1: How often do you have a drink containing alc ohol? Never 03/31/2025 Q2: How many drinks containi ng alcohol do you have on a typical day when you are drinking? 1 or 2 03/31/2025 Q3: How often do you have si x or more drinks on one occasion? Less than monthly 03/31/2025 Overall Financial Resource Strain (CARDIA) Answe r Date Recorded How hard is it for you to pa y for the very basics like food, housing, medical care, and heating? Not hard at all 03/31/2025 PHQ-2 Answer Date Recorded Patient Health Questionnaire-2 Score 0 03/31/2025 [facility] [place] of Occupat ional [facility] - Occupational Stress Questionnaire Answer Date Recorded Do you feel stress - tense, restless, nervous, or anxious, or unable to sleep at night because your mind is troubled all the time - these days? Not at all 03/31/2025 Exercise Vital Sign Answer Date Recorde d On average, how many days pe r week do you engage in moderate to strenuous exercise (like a brisk walk)? 2 days 03/31/2025 On average, how many minutes do you engage in exercise at this level? 30 min 03/31/2025 Hunger Vital Sign Answer Date Recorded Within the past 12 months, y ou worried that your food would run out before you got the money to buy more. Never true 03/31/20 25 Within the past 12 months, t he food you bought just didn't last and you didn't have money to get more. Never true 03/31/2025 PRAPARE - Transportation Answer Date Re corded In the past 12 months, has l ack of transportation kept you from medical appointments or from getting medications? No 03/07 In the past 12 months, has l ack of transportation kept you from meetings, work, or from getting things needed for daily living? No 03/31/2025 Housing Stability Vital Sign Answer Sukhdeep e Recorded In the last 12 months, was t here a time when you were not able to pay the mortgage or rent on time? No 08/04/2023 In the last 12 months, how many places have you lived? 1 08/04/2023 In the last 12 months, was t here a time when you did not have a steady place to sleep or slept in a jail (including now)? No 08/04/2023 Housing Stability Vital Sign Answer Sukhdeep e Recorded In the last 12 months, was t here a time when you were not able to pay the mortgage or rent on time? No 03/31/2025 In the past 12 months, how m any times have you moved where you were living? 1 03/31/2025 At any time in the past [address] [facility], were you homeless or living in a jail (including now)? No 03/31/2025 Depression Answer Date Recor ded Last EPDS Total Score 3 04/01/2025 Last EPDS Self Harm Result Often 04/01 Comments No Sex and Gender Information Value Date Recorded Sex Assigned at Female 04/01/2025 6:37 AM CDT Legal Sex Female 3:57 PM CDT Gender Identity Not on file Sexual Orientation Not on file Last Filed Vital Signs Vital Sign Reading Time Taken Comments Blood Pressure 128/85 04/02/2025 7:28 AM CDT Pulse 71 04/02/2025 7:28 AM CDT Temperature 36.8 C (98.2 F) 04/02/2025 7:28 AM CDT Respiratory Rate 18 04/02/2025 7:28 AM CDT Oxygen Saturation 100% 04/02/2025 7:28 AM CDT Inhaled Oxygen Concentration - - Weight 98.9 kg (218 lb) 03/30/2025 10:00 PM CDT Height 170.2 cm (5' 7) 03/30/2025 10:00 PM CDT Body Mass Index 34.14 03/30/2025 10:00 PM CDT Plan of Treatment Health Maintenance Due Date Last Done Comments Cervical Cancer Screening Pap Smear (Age 30 to 64) Every 3 Years 1995 Annual Physical 1998 Hepatitis C 2013 HPV Vaccines (1 - 3-dose SCDM series) 2022 Cervical Cancer Screening Pap with HPV Testing (Age 30 to 64) Every 5 Years 2025 Cervical Cancer Screening with HPV 2025 COVID-19 Vaccine ( season) 2025 09/13/2021, 08/21/2021 Influenza Adult (#1) 2025 DTaP, Tdap and Td Vaccines (7 - Td or Tdap) 01/05/2028 01/04/2018, 05/02/2000, 05/20/1996, Additional history exists Hepatitis B Vaccines Completed 1995, [birth year] Hepatitis A Vaccines Aged Out No long er eligible based on patient's age to complete this topic Meningococcal B Vaccine Aged Out No l onger eligible based on patient's age to complete this topic Meningococcal Vaccine Aged Out No stacey anderson eligible based on patient's age to complete this topic Pneumococcal Vaccine: Pediatrics (0 to 5 Years) and At-Risk Patients (6 to 49 Years) Aged Out No longer eligible based on patient's age to complete this topic RSV Immunizations Under 20 Months Aged Out No longer eligible based on patient's age to complete this topic [place] [address] [place] [address] Advance Directives * Full Code (Latest Code Status on File) Date Activated Date Inactivated Comments 03/30/2025 9:56 PM 04/02/2025 5:36 PM * Full Code Date Activated Date Inactivated Comments 08/04/2023 4:37 PM 08/07/2023 6:07 PM Care Teams Spectroscopist Relationship Specialty Start Date End Date None, Provider, PCP - General UNKNOWN PHYSICIAN SPECIALTY 06/07/23
== END 2025-09-17 10:06 | disposition home or self-care (01) ==
LOC: ANHBWCAUD 10:05
PROVIDERS: Visit Provider Otolaryngology
DX: R42 Dizziness and giddiness (principal); H93.11 Tinnitus, right ear; H66.91 Otitis media, unspecified, right ear; H74.8X3 Other specified disorders of middle ear and mastoid, bilateral; H74.03 Tympanosclerosis, bilateral; H93.8X3 Other specified disorders of ear, bilateral; Z96.22 Myringotomy tube(s) status; Z98.890 Other specified postprocedural states
CPT/HCPCS: 92557; 92567